=== PATIENT | male | born 1960 | race Caucasian/White ===

== ENCOUNTER 2017-05-15 15:23 | Inpatient (IN) | payer SELFPAY ==
[2017-05-15 15:45] LABS: BASO % 0 % (0-3); EOS % 0 % (0-3); HEMATOCRIT 46.3 % (39.0-53.0); HEMOGLOBIN 15.7 g/dL (13.0-17.5); LYMPH # 0.5 x10^3/uL (1.0-4.8); LYMPH % 4 % (24-48); MEAN CORPUSCULAR HEMOGLOBIN 29 pg (25-35); MEAN CORPUSCULAR HGB CONC 34 g/dL (31-37); MEAN CORPUSCULAR VOLUME 85 fL (79-100); MONO # 0.8 x10^3/uL (0.0-1.1); MONO % 7 % (0-9); NEUT % 89 % (31-73); PLATELET COUNT 116 x10^3/uL (140-400); RED BLOOD COUNT 5.44 x10^6/uL (4.30-5.70); WHITE BLOOD COUNT 11.3 x10^3/uL (4.0-11.0)
[2017-05-15 15:46] LABS: ADD MAN DIFF? YES
[2017-05-15 15:54] LABS: ANION GAP 8 (6-14); BLOOD UREA NITROGEN 17 mg/dL (8-26); BUN/CREATININE RATIO 19 (6-20); CALCIUM 8.5 mg/dL (8.5-10.1); CARBON DIOXIDE 25 mmol/L (21-32); CHLORIDE 98 mmol/L (98-107); CREATININE 0.9 mg/dL (0.7-1.3); GFR 87.9; GLUCOSE 105 mg/dL (70-99); POTASSIUM 3.8 mmol/L (3.5-5.1); SODIUM 131 mmol/L (136-145)
[2017-05-15 16:00] LABS: ALBUMIN 3.3 g/dL (3.4-5.0); ALBUMIN/GLOBULIN RATIO 0.9 (1.0-1.7); ALK PHOS 91 U/L (46-116); ALT (SGPT) 46 U/L (16-63); AST (SGOT) 25 U/L (15-37)
[2017-05-15 16:12] LABS: TROPONINI < 0.017 ng/mL (0.000-0.055)
[2017-05-15] MEDS: ACETAMINOPHEN 500 MG TABLET PO ×2 (16:14)
[2017-05-15 16:15] LABS: % BANDS 39 % (0-9); % LYMPHS 5 % (24-48); % MONOS 1 % (0-10); % SEGS 55 % (35-66)
[2017-05-15 16:16] LABS: INFLUENZA A PATIENT POSITIVE (NEGATIVE); INFLUENZA B PATIENT NEGATIVE (NEGATIVE); OBC FLU VALID; PLT ESTIMATE DECREASED (ADEQUATE); TOXIC GRANULATION SLIGHT; TOXIC VACUOLATION SLIGHT
[2017-05-15] MEDS: IBUPROFEN 600 MG TABLET. PO ×2 (16:38)
[2017-05-15] MEDS ORDERED: ONDANSETRON PF 4 MG/2 ML VIAL. IV ×2 (17:45)
[2017-05-15] MEDS ORDERED: MORPHINE SULFATE 2 MG/ML DISP.SYRIN. IV ×2 (17:45)
[2017-05-15 18:01] LABS: LACTIC ACID 1.1 mmol/L (0.4-2.0)
[2017-05-15] MEDS: IV NORMAL SALINE 1000ML BAG 1,000 ML IV ×4 (18:08→19:48)
[2017-05-15] MEDS: OSELTAMIVIR 75 MG CAPSULE PO ×2 (18:08)
[2017-05-15] MEDS ORDERED: MORPHINE SULFATE 4 MG/ML DISP.SYRIN. IV ×2 (18:45)
[2017-05-15] MEDS: oxyCODONE/APAP 5/325 1 TAB TABLET PO ×2 (19:58)
[2017-05-15] MEDS: guaiFENesin DM 200MG/20MG 10 ML SYRUP PO ×2 (23:53)
[2017-05-16] MEDS: IV NORMAL SALINE 1000ML BAG 1,000 ML IV ×6 (01:43→14:59)
[2017-05-16] MEDS: oxyCODONE/APAP 5/325 1 TAB TABLET PO ×8 (04:14→20:20)
[2017-05-16 04:17] LABS: ADD MAN DIFF? NO
[2017-05-16 04:28] LABS: BASO % 0 % (0-3); EOS % 0 % (0-3); HEMATOCRIT 45.7 % (39.0-53.0); HEMOGLOBIN 15.2 g/dL (13.0-17.5); LYMPH # 0.7 x10^3/uL (1.0-4.8); LYMPH % 8 % (24-48); MEAN CORPUSCULAR HEMOGLOBIN 29 pg (25-35); MEAN CORPUSCULAR HGB CONC 33 g/dL (31-37); MEAN CORPUSCULAR VOLUME 87 fL (79-100); MONO # 0.4 x10^3/uL (0.0-1.1); MONO % 5 % (0-9); NEUT # 6.8 x10^3uL (1.8-7.7); NEUT % 86 % (31-73); PLATELET COUNT 118 x10^3/uL (140-400); RED BLOOD COUNT 5.28 x10^6/uL (4.30-5.70); RED CELL DISTRIBUTION WIDTH 14.3 % (11.5-14.5)
[2017-05-16 04:39] LABS: ANION GAP 6 (6-14); BLOOD UREA NITROGEN 14 mg/dL (8-26); CALCIUM 7.6 mg/dL (8.5-10.1); CARBON DIOXIDE 27 mmol/L (21-32); CHLORIDE 102 mmol/L (98-107); CREATININE 0.9 mg/dL (0.7-1.3); GFR 87.9; GLUCOSE 126 mg/dL (70-99); POTASSIUM 3.9 mmol/L (3.5-5.1); SODIUM 135 mmol/L (136-145)
[2017-05-16] MEDS: OSELTAMIVIR 75 MG CAPSULE PO ×4 (08:09→20:20)
[2017-05-16] MEDS: guaiFENesin DM 200MG/20MG 10 ML SYRUP PO ×4 (08:10→23:28)
[2017-05-16] MEDS: NICOTINE 14MG PATCH. TD ×2 (08:10)
[2017-05-16] MEDS: FLU VACC QS2017-18 (36MOS+)/PF 0.5 ML SYRINGE. VAX IM ×2 (08:15)
[2017-05-16] MEDS ORDERED: INFLUENZA VAX SCREEN BY RX. MC ×2 (09:00)
[2017-05-16] MEDS ORDERED: PNEUMOCOCCAL VAX SCREEN BY RX. MC ×2 (09:00)
[2017-05-16] MEDS ORDERED: ALBUTEROL SULFATE 2.5 MG/3 ML NEBU. NEB ×2 (15:30)
[2017-05-16] MEDS: IPRATRPIUM/ALBUTEROL 0.5/2.5MG 3 ML NEBU. NEB ×4 (15:46→19:33)
[2017-05-16] MEDS: ASA/APAP/CAFFEINE 250/250/65MG TABLET. PO ×2 (16:55)
[2017-05-16] MEDS: methylPREDNISolone SOD SUCC PF 40 MG/ML VIAL. IV ×2 (17:52)
[2017-05-17 05:30] LABS: ADD MAN DIFF? NO
[2017-05-17 05:39] LABS: BASO % 0 % (0-3); EOS % 0 % (0-3); HEMATOCRIT 45.2 % (39.0-53.0); HEMOGLOBIN 15.3 g/dL (13.0-17.5); LYMPH # 0.5 x10^3/uL (1.0-4.8); LYMPH % 7 % (24-48); MEAN CORPUSCULAR HEMOGLOBIN 29 pg (25-35); MEAN CORPUSCULAR HGB CONC 34 g/dL (31-37); MEAN CORPUSCULAR VOLUME 87 fL (79-100); MONO # 0.5 x10^3/uL (0.0-1.1); MONO % 7 % (0-9); NEUT # 6.5 x10^3uL (1.8-7.7); NEUT % 86 % (31-73); PLATELET COUNT 123 x10^3/uL (140-400); RED BLOOD COUNT 5.21 x10^6/uL (4.30-5.70); RED CELL DISTRIBUTION WIDTH 14.6 % (11.5-14.5); WHITE BLOOD COUNT 7.5 x10^3/uL (4.0-11.0)
[2017-05-17 06:00] LABS: ANION GAP 4 (6-14); BLOOD UREA NITROGEN 11 mg/dL (8-26); CALCIUM 8.6 mg/dL (8.5-10.1); CARBON DIOXIDE 32 mmol/L (21-32); CHLORIDE 103 mmol/L (98-107); CREATININE 0.9 mg/dL (0.7-1.3); GFR 87.9; GLUCOSE 172 mg/dL (70-99); POTASSIUM 4.7 mmol/L (3.5-5.1); SODIUM 139 mmol/L (136-145)
[2017-05-17] MEDS: predniSONE 20 MG TABLET PO ×2 (08:10)
[2017-05-17] MEDS: IPRATRPIUM/ALBUTEROL 0.5/2.5MG 3 ML NEBU. NEB ×8 (08:10→19:30)
[2017-05-17] MEDS: OSELTAMIVIR 75 MG CAPSULE PO ×4 (08:10→20:01)
[2017-05-17] MEDS ORDERED: IV NORMAL SALINE 1000ML BAG 1,000 ML IV ×2 (11:30)
[2017-05-17] MEDS: FLU VACC QS2017-18 (36MOS+)/PF 0.5 ML SYRINGE. VAX IM ×2 (14:54)
[2017-05-17] MEDS: ASA/APAP/CAFFEINE 250/250/65MG TABLET. PO ×2 (14:55)
[2017-05-17] MEDS: NICOTINE POLACRILEX 2MG GUM PACKAGE of 12. BC ×2 (20:02)
[2017-05-17] MEDS: NICOTINE 14MG PATCH. TD ×2 (20:08)
[2017-05-17] MEDS ORDERED: AMOXICILLIN/K CLAV 875/125MG TABLET. PO ×2 (21:00)
[2017-05-17] MEDS: guaiFENesin DM 200MG/20MG 10 ML SYRUP PO ×2 (21:30)
[2017-05-17] MEDS: oxyCODONE/APAP 5/325 1 TAB TABLET PO ×2 (21:30)
[2017-05-18] MEDS: IPRATRPIUM/ALBUTEROL 0.5/2.5MG 3 ML NEBU. NEB ×8 (07:14→19:33)
[2017-05-18] MEDS: predniSONE 20 MG TABLET PO ×2 (10:03)
[2017-05-18] MEDS: OSELTAMIVIR 75 MG CAPSULE PO ×4 (10:03→20:02)
[2017-05-18] MEDS: oxyCODONE/APAP 5/325 1 TAB TABLET PO ×6 (10:04→20:02)
[2017-05-18] MEDS ORDERED: ACETAMINOPHEN 325 MG TABLET. PO ×2 (12:30)
[2017-05-18] MEDS: PIPERACILLIN/TAZOBACTAM 3.375 GM in IV NORMAL SALINE 50ML 50 ML IV ×2 (14:29→19:25)
[2017-05-18] MEDS: LINEZOLID 600 MG TABLET PO ×4 (14:29→20:02)
[2017-05-18] MEDS ORDERED: ALPRAZolam 0.25 MG TABLET PO ×2 (18:00)
[2017-05-18] MEDS: LACTOBACILLUS RHAMNOSUS GG 1 CAPSULE. PO ×2 (20:02)
[2017-05-19] MEDS: PIPERACILLIN/TAZOBACTAM 3.375 GM in IV NORMAL SALINE 50ML 50 ML IV ×4 (00:59→18:24)
[2017-05-19] MEDS: oxyCODONE/APAP 5/325 1 TAB TABLET PO ×8 (03:48→19:59)
[2017-05-19 04:50] LABS: ADD MAN DIFF? NO
[2017-05-19 05:09] LABS: BASO % 0 % (0-3); EOS % 0 % (0-3); HEMATOCRIT 40.9 % (39.0-53.0); HEMOGLOBIN 13.8 g/dL (13.0-17.5); LYMPH % 13 % (24-48); MEAN CORPUSCULAR HEMOGLOBIN 29 pg (25-35); MEAN CORPUSCULAR HGB CONC 34 g/dL (31-37); MEAN CORPUSCULAR VOLUME 86 fL (79-100); MONO # 1.2 x10^3/uL (0.0-1.1); MONO % 17 % (0-9); NEUT % 70 % (31-73); PLATELET COUNT 155 x10^3/uL (140-400); RED BLOOD COUNT 4.78 x10^6/uL (4.30-5.70); RED CELL DISTRIBUTION WIDTH 14.3 % (11.5-14.5); WHITE BLOOD COUNT 7.2 x10^3/uL (4.0-11.0)
[2017-05-19 05:35] LABS: ANION GAP 6 (6-14); BLOOD UREA NITROGEN 17 mg/dL (8-26); CALCIUM 8.4 mg/dL (8.5-10.1); CARBON DIOXIDE 32 mmol/L (21-32); CHLORIDE 101 mmol/L (98-107); CREATININE 0.9 mg/dL (0.7-1.3); GFR 87.9; GLUCOSE 181 mg/dL (70-99); POTASSIUM 3.7 mmol/L (3.5-5.1); SODIUM 139 mmol/L (136-145)
[2017-05-19] MEDS: IPRATRPIUM/ALBUTEROL 0.5/2.5MG 3 ML NEBU. NEB ×8 (07:50→19:50)
[2017-05-19] MEDS: LACTOBACILLUS RHAMNOSUS GG 1 CAPSULE. PO ×4 (08:27→20:59)
[2017-05-19] MEDS: predniSONE 20 MG TABLET PO ×2 (08:27)
[2017-05-19] MEDS: OSELTAMIVIR 75 MG CAPSULE PO ×4 (08:27→20:59)
[2017-05-19] MEDS: LINEZOLID 600 MG TABLET PO ×4 (08:27→20:59)
[2017-05-19] MEDS: NICOTINE POLACRILEX 2MG GUM PACKAGE of 12. BC ×2 (08:31)
[2017-05-19] MEDS: guaiFENesin DM 200MG/20MG 10 ML SYRUP PO ×2 (13:53)
[2017-05-20] MEDS: PIPERACILLIN/TAZOBACTAM 3.375 GM in IV NORMAL SALINE 50ML 50 ML IV ×2 (00:02→05:40)
[2017-05-20] MEDS: oxyCODONE/APAP 5/325 1 TAB TABLET PO ×4 (00:06→05:40)
[2017-05-20] MEDS: IPRATRPIUM/ALBUTEROL 0.5/2.5MG 3 ML NEBU. NEB ×4 (07:46→11:42)
[2017-05-20] MEDS: OSELTAMIVIR 75 MG CAPSULE PO ×2 (08:20)
[2017-05-20] MEDS: predniSONE 20 MG TABLET PO ×2 (08:20)
[2017-05-20] MEDS: LINEZOLID 600 MG TABLET PO ×2 (08:20)
[2017-05-20] MEDS: LACTOBACILLUS RHAMNOSUS GG 1 CAPSULE. PO ×2 (08:20)
== END 2017-05-20 12:15 | disposition left against medical advice (07) | DRG 871 ==
LOC: ER 15:23 → 5 NORTH 17:05
DX: A41.9 Sepsis, unspecified organism (principal); J10.08 Influenza due to other identified influenza virus with other specified pneumonia; J96.01 Acute respiratory failure with hypoxia; D69.6 Thrombocytopenia, unspecified; E87.1 Hypo-osmolality and hyponatremia; J44.0 Chronic obstructive pulmonary disease with (acute) lower respiratory infection; E86.0 Dehydration; J44.1 Chronic obstructive pulmonary disease with (acute) exacerbation; Z53.21 Procedure and treatment not carried out due to patient leaving prior to being seen by health care provider; F15.10 Other stimulant abuse, uncomplicated; F17.210 Nicotine dependence, cigarettes, uncomplicated; J10.1 Influenza due to other identified influenza virus with other respiratory manifestations; K21.9 Gastro-esophageal reflux disease without esophagitis; R09.02 Hypoxemia; M54.5 Low back pain
CPT/HCPCS: 36415; 71045; 80048; 80053; 83605; 84484; 85007; 85025; 87040; 87804; 87804-59; 90686; 93005; 93306; 94640; 94760; 96360; 99285; 99285-25; J2543; J2920; J7030; J7512; J7620

== ENCOUNTER 2018-12-15 20:35 | Emergency (ER) | payer SELFPAY ==
[~2018-12-15] VITALS: Ht 180.3 cm; Wt 63.5 kg
[~2018-12-15 20:35] MED LIST: CLIN150C14 PO; HYDR-3164 PO; TRAM50TA PO
[2018-12-15 22:21] VITALS: BP 136/93
--- NOTE | 2018-12-15 23:30 | RAD ---
FINGER(S) RIGHT History: Fourth finger pain, struck with a hammer Comparison: None. Findings: 3 views of the right hand with attention to the fourth digit are submitted. No convincing acute fracture or dislocation is identified by radiographs. Impression: 1. No convincing acute osseous abnormality is identified by radiographs. Electronically signed by: Hayden Cronin MD (12/15/2018 11:27 PM) [facility]
[2018-12-15] MEDS ORDERED: NAPR-514 PO (23:51)
--- NOTE | 2018-12-15 23:51 | PHYS DOC ---
Past Medical History Past Medical History: Arthritis, Cancer, Pneumonia Additional Past Medical Histor: HERNIA REPAIR, ARM SURGERY Past Surgical History: Knee Replacement Additional Past Surgical Histo: RIGHT KNEE SX, BILAT CARPAL TUNNEL, SKIN CANCER REMOVED UNDER LEFT NARE Smoking: Less than 1pk/day Additional Information: 04/20 PPD Alcohol Use: None Drug Use: None Adult General Chief Complaint Chief Complaint: HAND PROBLEM HPI HPI Patient is a 58 year old male who presents to the emergency department complaints of right hand pain. He states he was working around his house using a hammer when he hit his right fourth finger. He currently rates the pain a 5 out of 10 on the pain scale, there are no alleviating factors, the pain increases with movement. ROS Patient denies any numbness, tingling, weakness, or decreased range of motion of the right hand or fingers. He denies any recent fever, cough, headache, sore throat, nausea, vomiting, or diarrhea. All other ROS is neg unless otherwise noted in HPI. Review of Systems Review of Systems See Above Allergies Allergies Allergies Coded Allergies Type Severity Reaction Last Updated Verified No Known Drug Allergies 09/06/13 No Physical Exam Physical Exam See Above Constitutional: Well developed, well nourished, no acute distress, non-toxic appearance. [] HENT: Normocephalic, atraumatic, bilateral external ears normal, oropharynx moist, no oral exudates, nose normal. [] Eyes: PERRLA, EOMI, conjunctiva normal, no discharge. [] Neck: Normal range of motion, no stridor. [] Cardiovascular:Heart rate regular rhythm Lungs & Thorax: Respirations even and unlabored, no retractions, no respiratory distress Skin: Warm, dry, no erythema, no rash, no bruising. [] Extremities: Right proximal fourth finger tenderness to palpation, no crepitus, no obvious deformity, no cyanosis, no clubbing, ROM intact, no edema. [] Neurologic: Alert and oriented X 3, normal motor function, normal sensory function, no focal deficits noted. [] Psychologic: Affect normal, judgement normal, mood normal. [] Current Patient Data Vital Signs Vital Signs Date Time Temp Pulse Resp B/P (MAP) Pulse Ox O2 Delivery O2 Flow Rate FiO2 12/15/18 22:21 97.7 101 16 136/93 (107) 95 Room Air 97.7 EKG EKG [] Radiology/Procedures Radiology/Procedures PROCEDURE: FINGER(S) RIGHT FINGER(S) RIGHT History: Fourth finger pain, struck with a hammer Comparison: None. Findings: 3 views of the right hand with attention to the fourth digit are submitted. No convincing acute fracture or dislocation is identified by radiographs. Impression: 1. No convincing acute osseous abnormality is identified by radiographs.[] Course & Med Decision Making Course & Med Decision Making Pertinent Labs and Imaging studies reviewed. (See chart for details) [] Dragon Disclaimer Dragon Disclaimer This electronic medical record was generated, in whole or in part, using a voice recognition dictation system. Departure Departure Impression: Primary Impression: Contusion of finger without damage to nail Disposition: HOME, SELF-CARE Condition: STABLE Referrals: NO PCP (PCP) Patient Instructions: Contusion, [id number] Additional Instructions: Fill prescription(s) and use as directed. Recommend application of ice, elevation, and rest of affected finger. Follow-up with your primary care doctor if symptoms persist. Return to the ER if your symptoms worsen. Scripts Naproxen (NAPROXEN) 500 Mg Tablet 1 TAB PO BID for 10 Days, #20 TAB 0 Refills Prov: ROSA FERNANDEZ APRN 12/15/18 Problem Qualifiers Primary Impression: Contusion of finger without damage to nail Encounter type: initial encounter Finger: ring finger Laterality: right Qualified Codes: S60.041A - Contusion of right ring finger without damage to nail, initial encounter ROSA FERNANDEZ APRN Dec 15, 2018 23:51
== END 2018-12-16 | disposition home or self-care (01) ==
LOC: ER 20:35
DX: S60.041A Contusion of right ring finger without damage to nail, initial encounter (principal); M19.90 Unspecified osteoarthritis, unspecified site; F17.200 Nicotine dependence, unspecified, uncomplicated; Z96.651 Presence of right artificial knee joint; W22.8XXA Striking against or struck by other objects, initial encounter; Y93.89 Activity, other specified; Y92.89 Other specified places as the place of occurrence of the external cause; Y99.8 Other external cause status
CPT/HCPCS: 73140; 99284